=== PATIENT | female | born 1975 | race American Indian/Alaskan Native ===

== ENCOUNTER 2017-04-09 12:44 | Outpatient (CLI) | payer OTHER ==
--- NOTE | 2017-04-12 12:45 | Mammography Report ---
BILATERAL DIGITAL SCREENING MAMMOGRAM WITH CAD:04/09/17 CLINICAL: Baseline screening. FINDINGS: The breasts are mostly fatty with a few bilateral scattered fibroglandular densities.No mass, architectural distortion or suspicious calcifications. IMPRESSION: No mammographic evidence of malignancy. BI-RADS CATEGORY: 1 -- Negative RECOMMENDATION: Routine mammographic screening in one year. ACR BI-RADS MAMMOGRAPHIC CODES: 0 = Needs additional imaging evaluation; 1 = Negative; 2 = Benign; 3 = Probably benign; 4 = Suspicious; 5 = Malignant; 6 = Known biopsy-proven malignancy COMMENT: 1. Dense breast tissue, i.e., adenosis, fibrocystic changes, etc., may obscure an underlying neoplasm. 2. Approximately 10% of cancers are not detected with mammography. 3. A negative mammography report should not delay biopsy if a clinically suspicious mass is present.
== END 2017-04-09 12:45 | disposition home or self-care (01) ==
LOC: SPVWC 12:44
DX: Z12.31 Encounter for screening mammogram for malignant neoplasm of breast (principal)
CPT/HCPCS: 77067

== ENCOUNTER 2018-06-14 11:12 | Outpatient (CLI) | payer OTHER ==
--- NOTE | 2018-06-14 11:50 | XRay Report ---
KUB: 06/14/18 CLINICAL: Abdominal pain. FINDINGS: Surgical clips in right upper quadrant. There is a paucity of bowel gas with no distended small or large bowel. Gas in the stomach. Phleboliths in the pelvis. No mass or suspicious calcifications. Levoscoliosis. No suspicious bone lesions. IMPRESSION: Negative abdomen status post cholecystectomy.
== END 2018-06-14 11:13 | disposition home or self-care (01) ==
LOC: SPVIMAG 11:12
DX: R10.9 Unspecified abdominal pain (principal)
CPT/HCPCS: 74018